=== PATIENT | female | born 2000 | race American Indian/Alaskan Native ===

== ENCOUNTER 2020-03-29 17:08 | Emergency (ER) | payer SELFPAY ==
[2020-03-29] MEDS ORDERED: IBUPROFEN 600 MG TAB PO ONE (17:19)
--- NOTE | 2020-03-29 18:15 | XRay Report ---
RIGHT HAND 3 VIEWS INDICATION: Traumatic injury. COMPARISON: No relevant prior imaging study available. FINDINGS: There is cortical offset at the base of the ring finger metacarpal on the AP image. This is not confi rmed on the additional projections. Bones otherwise unremarkable. No significant soft tissue swelling . No foreign bodies. There is widening at the scapholunate articulation. IMPRESSION: 1. Cortical offset at the base of the ring finger metacarpal only seen on one view. While this could be artifact, minimally displaced fracture could have this appearance, correlate with point tenderness . 2. Widening at the scapholunate articulation could be seen in the setting of age-indeterminate scapho lunate ligament injury. Signer Name: Matthieu Carr MD Signed: 03/29/2020 6:11 PM Workstation Name: [id number]
--- NOTE | 2020-03-29 18:25 | Emergency Department Report ---
ED Upper Extremity Inj HPI - General Chief Complaint: Extremity Injury, Upper Stated Complaint: RT HAND INJURY Source: patient Mode of arrival: Ambulatory Limitations: No Limitations - History of Present Illness Initial Comments: Patient is a 19-year-old -[place] female with no past medical history presents to the ED with complaint of acute onset severely painful lateral right hand and fifth metacarpal pain after she punched a door in anger about 2 hours ago. Patient states that the pain of the swollen of worsened in the last 1 hour. Patient states that she has not been able to perform any active range of motion of the right hand because of severe pain. Patient denies numbness and tingling or weakness of right hand, fall, nausea and vomiting, heavy lifting, n suhail pain, wrist pain, chest pain or shortness of breath. MD Complaint: Injury to:: right (hand), hand (pain) -: Sudden, hour(s) (2) Other Extremity Injury: Hand: Right (punched a wall) Other Injuries: none Handedness: right Place: home Severity scale (0 -10): 7 Improves With: none Worsens With: movement of extremity Context: direct blow (punched a door in anger), injury Associated Symptoms: denies other symptoms. denies: weakness, numbness, neck pain, suspects foreign body, nausea/vomiting, heard/felt popping sensat - Related Data Previous Rx's Medication Instructions Recorded Last Taken Type Acetaminophen/Codeine [Tylenol #3] 1 tab PO Q6H PRN #20 tab 06/09/15 Unknown Rx Amoxicillin/K Clav Tab [Augmentin 1 tab PO Q12HR #20 tab 06/09/15 Unknown Rx 875 mg] Loratadine (Nf) [Claritin] 10 mg PO DAILY #30 tablet 06/09/15 Unknown Rx Prednisone [predniSONE 5 mg (6-Day 5 mg PO .TAPER #1 tab.ds.pk 06/09/15 Unknown Rx Pack, 21 Tabs)] HYDROcodone/APAP 5-325 [[place] 1 each PO Q6HR PRN #12 tablet 03/29/20 Unknown Rx 5/325] Ibuprofen [Motrin] 600 mg PO Q8H PRN #30 tablet 03/29/20 Unknown Rx Allergies Allergy/AdvReac Type Severity Reaction Status Date / Time No Known Allergies Allergy Verified 06/08/15 20:05 ED Review of Systems ROS: Stated complaint: RT HAND INJURY Other details as noted in HPI Constitutional: denies: chills, fever Eyes: denies: eye pain, eye discharge, vision change ENT: denies: ear pain, throat pain Respiratory: denies: cough, shortness of breath, wheezing Cardiovascular: denies: chest pain, palpitations Endocrine: no symptoms reported Gastrointestinal: denies: abdominal pain, nausea, diarrhea Genitourinary: denies: urgency, dysuria, discharge Musculoskeletal: joint swelling (lateral right hand pain), arthralgia (Lateral right hand pain). denies: back pain Skin: denies: rash, lesions Neurological: denies: headache, weakness, paresthesias Psychiatric: denies: anxiety, depression Hematological/Lymphatic: denies: easy bleeding, easy bruising ED Past Medical Hx - Past Medical History Previous Medical History?: No - Surgical History Past Surgical History?: No - Social History Smoking Status: Never Smoker Substance Use Type: None - Medications Home Medications: Home Medications Medication Instructions Recorded Confirmed Last Taken Type Acetaminophen/Codeine [Tylenol #3] 1 tab PO Q6H PRN #20 tab 06/09/15 Unknown Rx Amoxicillin/K Clav Tab [Augmentin 1 tab PO Q12HR #20 tab 06/09/15 Unknown Rx 875 mg] Loratadine (Nf) [Claritin] 10 mg PO DAILY #30 tablet 06/09/15 Unknown Rx Prednisone [predniSONE 5 mg (6-Day 5 mg PO .TAPER #1 tab.ds.pk 06/09/15 Unknown Rx Pack, 21 Tabs)] HYDROcodone/APAP 5-325 [[place] 1 each PO Q6HR PRN #12 tablet 03/29/20 Unknown Rx 5/325] Ibuprofen [Motrin] 600 mg PO Q8H PRN #30 tablet 03/29/20 Unknown Rx ED Physical Exam - General Limitations: No Limitations General appearance: alert, in no apparent distress - Head Head exam: Present: atraumatic, normocephalic, normal inspection - Eye Eye exam: Present: normal appearance, PERRL, EOMI Pupils: Present: normal accommodation - ENT ENT exam: Present: normal exam, normal orophraynx, mucous membranes moist, TM's normal bilaterally, normal external ear exam - Neck Neck exam: Present: normal inspection, full ROM - Respiratory Respiratory exam: Present: normal lung sounds bilaterally. Absent: respiratory distress, wheezes, rales, rhonchi, chest wall tenderness, accessory muscle use, decreased breath sounds, prolonged expiratory - Cardiovascular Cardiovascular Exam: Present: regular rate, normal rhythm, normal heart sounds. Absent: systolic murmur, diastolic murmur, rubs, gallop - GI/Abdominal GI/Abdominal exam: Present: soft, normal bowel sounds. Absent: tenderness, guarding, rebound, hyperactive bowel sounds, hypoactive bowel sounds, organomegaly, mass - Extremities Exam Extremities exam: Present: normal inspection, tenderness (Palpable lateral right hand tenderness on fifth metacarpal), normal capillary refill, joint swelling (Mild right fifth metacarpal swelling tenderness). Absent: full ROM (Limited range of motion of right hand due to pain), pedal edema, calf tenderness - Back Exam Back exam: Present: normal inspection, full ROM. Absent: tenderness, CVA tenderness (R), CVA tenderness (L), muscle spasm, paraspinal tenderness, vertebral tenderness - Neurological Exam Neurological exam: Present: alert, oriented X3, CN II-XII intact, normal gait, reflexes normal - Psychiatric Psychiatric exam: Present: normal affect, normal mood - Skin Skin exam: Present: warm, dry, intact, normal color. Absent: rash ED Medical Decision Making - Radiology Data Radiology results: report reviewed, image reviewed Findings [facility] [address] [place] [address] XRay Report Signed Patient: PRISCILLA BASSETT#: [id number] : 2000 Acct:[id number] Age/Sex: 19 / F ADM Date: 03/29/20 Loc: ED Attending Dr: Ordering Physician: NIKA LUU Date of Service: 03/29/20 Procedure(s): XR hand 3+V RT Accession Number(s): [id number] cc: NIKA LUU Fluoro Time In Minutes: RIGHT HAND 3 VIEWS INDICATION: Traumatic injury. COMPARISON: No relevant prior imaging study available. FINDINGS: There is cortical offset at the base of the ring finger metacarpal on the AP image. This is not confirmed on the additional projections. Bones otherwise unremarkable. No significant soft tissue swelling. No foreign bodies. There is widening at the scapholunate articulation. IMPRESSION: 1. Cortical offset at the base of the ring finger metacarpal only seen on one view. While this could be artifact, minimally displaced fracture could have this appearance, correlate with point tenderness. 2. Widening at the scapholunate articulation could be seen in the setting of age-indeterminate scapholunate ligament injury. Signer Name: Matthieu Carr MD Signed: 03/29/2020 6:11 PM Workstation Name: [id number] Transcribed By: SW Dictated By: Matthieu Carr MD Electronically Authenticated By: Matthieu Carr MD Signed Date/Time: 03/29/201810 DD/ 08 TD/TT: - Medical Decision Making This is a 19-year-old -[place] female with no past medical history presents to the ED with complaint of acute onset severely painful lateral right hand and fifth metacarpal pain after she punched a door in anger about 2 hours ago. Patient states that the pain of the swollen of worsened in the last 1 hour. Patient states that she has not been able to perform any active range of motion of the right hand because of severe pain. In the ED, patient is alert and oriented x3 and is not in distress. Patient was treated for pain in the ED and right hand x-ray showed cortical offset at the base of the ring finger metacarpal only seen on one view. While this could be artifact, minimally displaced fracture could have this appearance, correlate with point tenderness. It also showed a widening at the scapholunate articulation could be seen in the setting of age-indeterminate scapholunate ligament injury. The patient's hand was splinted with ulnar gutter splint and the patient tolerated procedure well. Patient was therefore discharged home on pain medications and given a referral to the orthopedic surgeon on-call Dr. Myers for further evaluation. Patient was advised to contact Dr. Myers's office first thing in the morning on Monday, March 30, 2020 to schedule a follow-up appointment with Dr. Myers. Patient was advised to return to the ED immediately if symptoms get worse. - Differential Diagnosis Hand fracture; metacarpal fracture; fifth finger fracture, hand sprain Critical care attestation.: If time is entered above; I have spent that time in minutes in the direct care of this critically ill patient, excluding procedure time. ED Disposition Clinical Impression: Closed fracture of fourth metacarpal bone of right hand Qualifiers: Encounter type: initial encounter Metacarpal location: base Fracture alignment: displaced Qualified Code(s): S62.314A - Displaced fracture of base of fourth metacarpal bone, right hand, initial encounter for closed fracture Contusion of right hand including fingers Qualifiers: Encounter type: initial encounter Qualified Code(s): S60.221A - Contusion of right hand, initial encounter; S60.00XA - Contusion of unspecified finger without damage to nail, initial encounter Disposition: TO HOME OR SELFCARE Is pt being admited?: No Does the pt Need Aspirin: No Condition: Stable Instructions: Hand Contusion, [id number], Metacarpal Fracture, [id number], Finger Fracture, Adult Additional Instructions: The right hand x-ray showed mildly displaced fracture of right ring finger at the base. Therefore take medications with food, drink plenty of fluids and follow-up with the orthopedic surgeon on-call Dr. Myers for further evaluation. Contact Dr. Myers's office first thing in the morning on Monday, March 30, 2020 to schedule a follow-up appointment. Return to the ED immediately if symptoms get worse. Prescriptions: Ibuprofen [Motrin] 600 mg PO Q8H PRN #30 tablet PRN Reason: Pain HYDROcodone/APAP 5-325 [[place] 5/325] 1 each PO Q6HR PRN #12 tablet PRN Reason: Pain Referrals: MARCI MYERS MD [Staff Physician] - [place] (Contact Dr. Myers's office first thing in the morning on Monday, March 30, 2020 to schedule a follow- up appointment.) Time of Disposition: 18:36 Print Language: CITIZ[place] OF [place]
[2020-03-29 18:38] VITALS: BP 120/89
== END 2020-03-29 19:40 | disposition home or self-care (01) ==
LOC: ED 17:08
DX: S62.314A Displaced fracture of base of fourth metacarpal bone, right hand, initial encounter for closed fracture (principal); S60.221A Contusion of right hand, initial encounter; Z79.899 Other long term (current) drug therapy; W26.9XXA Contact with unspecified sharp object(s), initial encounter; Y93.89 Activity, other specified; Y92.009 Unspecified place in unspecified non-institutional (private) residence as the place of occurrence of the external cause; Y99.8 Other external cause status

== ENCOUNTER 2020-05-21 12:19 | Emergency (ER) | payer SELFPAY ==
[2020-05-21] MEDS ORDERED: ETOMIDATE 20 MG/10 ML INJ IV ONE ×2 (12:23→12:36)
[2020-05-21] MEDS ORDERED: levETIRAcetam 1000 MG/NS 0.75% 1,000 MG/100 ML BAG IV ONE ×2 (12:26→12:28)
[2020-05-21] MEDS ORDERED: ROCURONIUM 50 MG/5 ML INJ IV ONE ×2 (12:30→12:36)
[2020-05-21] MEDS ORDERED: MINERAL OIL/PETROLATUM, WHITE OPHTH OINT 3.5 GM OU PRN (12:37)
[2020-05-21] MEDS ORDERED: LIP THERAPY VASELINE TP PRN (12:37)
[2020-05-21] MEDS ORDERED: fentaNYL 100 MCG/2 ML INJ IV PRN (12:37)
[2020-05-21] MEDS ORDERED: fentaNYL DRIP Premix 2,000 MCG/100 ML BAG IV SCH (13:00)
[2020-05-21 13:34] LABS: Basophils # (Auto) 0.1 K/mm3 (0.0-0.1); Basophils % (Auto) 0.8 % (0.0-1.8); Eosinophils % (Auto) 0.1 % (0.0-4.3); Hemoglobin 13.5 gm/dl (10.1-14.3); Lymphocytes # (Auto) 2.4 K/mm3 (1.2-5.4); Lymphocytes % (Auto) 29.9 % (13.4-35.0); Mean Corpuscular HGB Conc 34 % (30-34); Mean Corpuscular Volume 95 fl (79-97); Monocytes # (Auto) 0.5 K/mm3 (0.0-0.8); Monocytes % (Auto) 6.6 % (0.0-7.3); Platelet Count 224 K/mm3 (140-440); Red Blood Count 4.22 M/mm3 (3.65-5.03); Red Cell Distribution Width 14.5 % (13.2-15.2)
--- NOTE | 2020-05-21 13:43 | History and Physical Report ---
Medications and Allergies Allergies Allergy/AdvReac Type Severity Reaction Status Date / Time No Known Allergies Allergy Verified 05/21/20 12:36 Home Medications Medication Instructions Recorded Confirmed Last Taken Type Acetaminophen/Codeine [Tylenol #3] 1 tab PO Q6H PRN #20 tab 06/09/15 Unknown Rx Amoxicillin/K Clav Tab [Augmentin 1 tab PO Q12HR #20 tab 06/09/15 Unknown Rx 875 mg] Loratadine (Nf) [Claritin] 10 mg PO DAILY #30 tablet 06/09/15 Unknown Rx Prednisone [predniSONE 5 mg (6-Day 5 mg PO .TAPER #1 tab.ds.pk 06/09/15 Unknown Rx Pack, 21 Tabs)] HYDROcodone/APAP 5-325 [[place] 1 each PO Q6HR PRN #12 tablet 03/29/20 Unknown Rx 5/325] Ibuprofen [Motrin] 600 mg PO Q8H PRN #30 tablet 03/29/20 Unknown Rx Active Meds: Active Medications Fentanyl (Fentanyl 100 Mcg/2 Ml Inj) 50 mcg IV Q10MIN PRN PRN Reason: ANALGESIA Hydrophilic Ointment (Lip Therapy Vaseline) 1 applic TP Q2HR PRN PRN Reason: Dry Lips Fentanyl Citrate (Fentanyl Drip Premix) 2,000 mcg in 100 mls @ 2.722 mls/hr IV TITR ZACARIAS; Protocol Propofol (Diprivan 10 Mg/Ml) 1,000 mg in 100 mls @ 1.633 mls/hr IV TITR ZACARIAS; Protocol Multi-Ingred Cream/Lotion/Oil/Oint (Mineral Oil/Petrolatum, White Ophth Oint 3.5 Gm) 1 applic OU Q4HR PRN PRN Reason: Dry Eye(s) Physical Examination - Vital Signs Vital Signs: Vital Signs Pulse BP Pulse Ox 120 H 154/104 100 05/21/20 12:53 05/21/20 12:53 05/21/20 12:53 Results - Laboratory Findings CBC and BMP: 05/21/20 13:14 Assessment and Plan [facility] Consult Note # Demographics Consult Type: Acute Stroke Level 1 (0-4.5 hrs) Patient Location: Emergency Room First Name: Carmelina Last Name: Edi Rajan Date of : 2000 Age: 19 Gender: Female Time of Initial Page (Eastern Time): 05/21/2020, 13:04 Time of Return Call (Eastern Time): 05/21/2020, 13:05 # HPI Chief Complaint: altered mental state, seizure History: 19 yo woman with unknown medical history presents with multiple seizures today. Received 2 mg ativan x 2 but had persistent right lower extremity focal seizures. She was loaded on Keppra 2000 mg keppra, was intubated for airway protection and started on Propofol. Last Known Normal:Unclear # Exam Additional Neurologic Exam: Patient intubated, sedated, paralyzed uable to perform teleneurology exam # Data Head CT: no bleed, preliminarily reviewed by me, please refer to radiology read for official reading # Assessment Impression: Recurrent seizures concering for status epilepticus, patient intub ated, sedated # Recommendations: Loaded with Keppra 2000 mg Currently sedated with Propofol Intubated CT/CTA pending (please call back if abnormal) Tox screen pending Electrolytes pending, correct any abnormalities Transfer to higher level of care for continuous EEG MRI brain Will consider LP pending further workup Disposition: transfer
[2020-05-21 13:44] LABS: Partial Thromboplastin Time 27.1 Sec. (24.2-36.6); Thrombin Time 15.9 Sec. (15.1-19.6)
--- NOTE | 2020-05-21 13:47 | Emergency Department Report ---
ED General Adult HPI - General Chief complaint: Seizure Stated complaint: SEIZURE PUI?: No Time Seen by Provider: 05/21/20 12:34 Source: EMS ( EMS documentation not available at time of chart dictation ), RN notes reviewed Mode of arrival: Stretcher Limitations: Altered Mental Status - History of Present Illness Initial comments: The patient was evaluated in the emergency department for symptoms described in the history of present illness. He/she was evaluated in the context of the global COVID-19 pandemic, which necessitated consideration that the patient might be at risk for infection with the virus that causes COVID-19. Institutional protocols and algorithms that pertain to the evaluation of patients at risk for COVID-19 are in a state of rapid change based on information released by regulatory bodies including the CDC and federal and state organizations. These policies and algorithms were followed during the jessica quevedo's care in the emergency department. Please note that these policies, procedures and recommendations changed on a rapid basis. EMS documentation not available at time of chart dictation This is a 19-year-old female. She is not known to myself previously The details of her past medical history at this time, including status, are not known to myself. She is brought to the hospital by EMS with a complaint of altered mental status and seizures. History obtained entirely from EMS, as the patient is currently altered. EMS reports they presented to this patient's domicile with a complaint of generalized seizure/convulsion. It is not known if this is the patient's first lifetime seizure, or if she has a history of seizures. EMS told me that the patient had a generalized convulsive event and/or seizure, which apparently spontaneously terminated. It is not known how long this event lasted for. There was no trauma today as per EMS, but they tell me that the patient may have had mild blunt head trauma a few days ago. They then told me that the patient appeared to be confused, then started to have another focal convulsive event, primarily in her right leg. There is also some right arm movement. They report normal Accu-Chek in the field. They report that patient has been having persistently altered mental status, and twitching in her right leg, on and off for at least the past 20 minutes. They gave the patient 2 mg of Ativan in the field, without improvement in symptoms. Initially upon arrival, Accu-Chek 96. Saturating at 96%. Having intermittent twitching in the right lower extremity, does not respond to noxious stimuli, pupils reactive to light, eyes moving in multiple directions. Patient nonverbal. We are concerned that the patient is in status epilepticus. She is therefore emergently intubated by myself. Patient medicated with Keppra. Code stroke called overhead. Noncontrast CT scan of the brain negative for acute disease. Discussed case with neurology on-call, Dr. Galindo. We agreed that the patient is not a TPA candidate given that she is in status epilepticus, and her last known well time at this time is not explicitly known. He did agree with supportive care, and transfer to tertiary care center for definitive management, as we are not able to provide continuous EEG monitoring. Laboratory studies, CT angiogram head and neck pending at this time. Patient is afebrile at this time. The patient was altered upon arrival, and therefore, not able to describe the qualitative nature of her symptoms, exacerbating factors, relieving factors, or aggravating factors pertinent to her presentation. We will try and get in touch with family to obtain additional history of present illness. -: This morning Quality: other Consistency: other Improves with: other Worsens with: other Associated Symptoms: other - Related Data Previous Rx's Medication Instructions Recorded Last Taken Type Acetaminophen/Codeine [Tylenol #3] 1 tab PO Q6H PRN #20 tab 06/09/15 Unknown Rx Amoxicillin/K Clav Tab [Augmentin 1 tab PO Q12HR #20 tab 06/09/15 Unknown Rx 875 mg] Loratadine (Nf) [Claritin] 10 mg PO DAILY #30 tablet 06/09/15 Unknown Rx Prednisone [predniSONE 5 mg (6-Day 5 mg PO .TAPER #1 tab.ds.pk 06/09/15 Unknown Rx Pack, 21 Tabs)] HYDROcodone/APAP 5-325 [[place] 1 each PO Q6HR PRN #12 tablet 03/29/20 Unknown Rx 5/325] Ibuprofen [Motrin] 600 mg PO Q8H PRN #30 tablet 03/29/20 Unknown Rx Allergies Allergy/AdvReac Type Severity Reaction Status Date / Time No Known Allergies Allergy Verified 05/21/20 12:36 ED Review of Systems ROS: Stated complaint: SEIZURE Other details as noted in HPI Comment: Unobtainable due to pts medical conditions ED Past Medical Hx - Past Medical History Additional medical history: UNKNOWN - Surgical History Additional Surgical History: UNKNOWN - Social History Smoking Status: Never Smoker Substance Use Type: None - Medications Home Medications: Home Medications Medication Instructions Recorded Confirmed Last Taken Type Acetaminophen/Codeine [Tylenol #3] 1 tab PO Q6H PRN #20 tab 06/09/15 Unknown Rx Amoxicillin/K Clav Tab [Augmentin 1 tab PO Q12HR #20 tab 06/09/15 Unknown Rx 875 mg] Loratadine (Nf) [Claritin] 10 mg PO DAILY #30 tablet 06/09/15 Unknown Rx Prednisone [predniSONE 5 mg (6-Day 5 mg PO .TAPER #1 tab.ds.pk 06/09/15 Unknown Rx Pack, 21 Tabs)] HYDROcodone/APAP 5-325 [[place] 1 each PO Q6HR PRN #12 tablet 03/29/20 Unknown Rx 5/325] Ibuprofen [Motrin] 600 mg PO Q8H PRN #30 tablet 03/29/20 Unknown Rx ED Physical Exam - General Limitations: Altered Mental Status, Other General appearance: obtunded - Head Head exam: Present: normocephalic, other (right forehead abrasion) - Eye Eye exam: Present: normal appearance, PERRL - ENT ENT exam: Present: normal exam, normal orophraynx, mucous membranes moist, normal external ear exam, other (Copious secretions noted in the oropharynx) - Neck Neck exam: Present: normal inspection, full ROM. Absent: tenderness, meningismus - Respiratory Respiratory exam: Absent: wheezes, rales, rhonchi, stridor - Cardiovascular Cardiovascular Exam: Present: normal rhythm, tachycardia, normal heart sounds. Absent: bradycardia, irregular rhythm, systolic murmur, diastolic murmur, rubs, gallop - GI/Abdominal GI/Abdominal exam: Present: soft. Absent: distended, tenderness, guarding, rebound, rigid, pulsatile mass - Extremities Exam Extremities exam: Present: normal inspection, normal capillary refill, other (2+ pulses noted in the bilateral upper and lower extremities. There is no palpable cord. negative Homans sign. Muscular compartments are soft. The p phillip is stable.). Absent: pedal edema, calf tenderness - Back Exam Back exam: Present: normal inspection. Absent: tenderness, CVA tenderness (R), CVA tenderness (L), paraspinal tenderness, vertebral tenderness - Neurological Exam Neurological exam: Present: altered, other (Patient nonverbal. Does not localize pain. Eyes do not open spontaneously. Eyes noted to be fluttering. Intermittent twitching in the right lower extremity.) - Skin Skin exam: Present: warm, dry, intact, normal color. Absent: rash ED Course Vital Signs 05/21/20 05/21/20 05/21/20 12:48 12:53 13:14 Temperature Pulse Rate 103 H 120 H 93 H Respiratory 19 Rate Blood Pressure 127/84 Blood Pressure 154/104 [Right] O2 Sat by Pulse 100 100 100 Oximetry 05/21/20 05/21/20 05/21/20 13:16 13:18 13:42 Temperature 97.9 F Pulse Rate 101 H 81 64 Respiratory 18 20 Rate Blood Pressure Blood Pressure 129/89 [Right] O2 Sat by Pulse 100 100 100 Oximetry 05/21/20 05/21/20 05/21/20 13:45 14:01 14:15 Temperature Pulse Rate 66 74 90 Respiratory 18 21 22 Rate Blood Pressure 137/72 135/82 135/91 Blood Pressure [Right] O2 Sat by Pulse 100 100 100 Oximetry 05/21/20 05/21/20 05/21/20 14:31 14:45 15:01 Temperature Pulse Rate 100 H 99 H 107 H Respiratory 24 21 28 H Rate Blood Pressure 127/79 113/67 103/62 Blood Pressure [Right] O2 Sat by Pulse 98 98 100 Oximetry 05/21/20 05/21/20 05/21/20 15:15 15:31 15:45 Temperature Pulse Rate 112 H 89 79 Respiratory 31 H 18 18 Rate Blood Pressure 107/63 96/45 85/40 Blood Pressure [Right] O2 Sat by Pulse 92 100 100 Oximetry 05/21/20 05/21/20 05/21/20 16:00 16:12 16:15 Temperature Pulse Rate 72 73 70 Respiratory 18 18 Rate Blood Pressure 86/45 86/45 83/44 Blood Pressure [Right] O2 Sat by Pulse 100 100 Oximetry 05/21/20 05/21/20 05/21/20 16:30 16:45 17:00 Temperature Pulse Rate 62 60 60 Respiratory 18 18 18 Rate Blood Pressure 93/52 95/51 100/58 Blood Pressure [Right] O2 Sat by Pulse 100 100 100 Oximetry 05/21/20 05/21/20 05/21/20 17:15 17:30 17:45 Temperature Pulse Rate 54 L 55 L 58 L Respiratory 18 18 18 Rate Blood Pressure 103/56 113/62 117/63 Blood Pressure [Right] O2 Sat by Pulse 100 100 100 Oximetry - Reevaluation(s) Reevaluation #1: 05/21/20 13:53 Differential diagnosis, including but not limited to: Seizure, pseudoseizure, status epilepticus, large vessel occlusion, dissection, electrolyte derangement, toxic encephalopathy, metabolic encephalopathy Assessment and plan: 19-year-old female, presenting with multiple convulsive events, without return of normal mental status, concerning for status epilepticus. She was intubated for airway protection. She is maximally resuscitated, and loaded with Keppra, started on propofol drip. Noncontrast CT scan of the brain negative for acute findings. CT angiogram head and neck pending. Hemodynamically stable at this time. Laboratory studies and EKG pending. We will reach out to local tertiary care center to arrange transfer. We will also discussed with family to attempt to obtain additional collateral information. 05/21/20 14:49 I contacted the patient's mother, Ms. Laura Daley, and obtain additional collateral information. Patient chronically consumes marijuana, but otherwise, has no chronic medical conditions, does not have an established diagnosis of seizures. No Covid related symptoms. The patient is not and has not delivered or given in the past 6 weeks as per her mother. No other recreational drug use that she is aware of. CT scan of the brain negative for acute fi ndings. CT angiogram head and neck negative for acute findings. Patient awake, moving 4 extremities purposefully. Nursing team to titrate propofol and fentanyl. Urinalysis demonstrates presence of marijuana. Patient does not have evidence of active convulsive activity at this time We will reach out to [facility] critical care/neurology critical care to discuss appropriate disposition. 05/21/20 15:23 I have discussed the case with Dr. Charles, neurology critical care at [facility]. We discussed the patient's history, physical, presentation, laboratory studies and pertinent imaging studies. He accepts the patient to his service at [facility]. Patient's mother is updated. This patient requires transfer as she has an emergent condition at this time which cannot be definitively managed at this hospital, as we do not have continuous EEG monitoring, or neurology critical care. We cannot exclude subc linical status epilepticus at this time. Patient hemodynamically stable, airway secured, medically suitable for transportation at this time, for definitive management. 05/21/20 16:00 No additional convulsive activity noted blood pressure in the 80s. This is likely secondary to propofol. We will taper down on propofol, give IV fluids, escalate fentanyl if needed. Nursing team given verbal and written order to check manual blood pressure. 05/21/20 18:31 Blood pressure improved at the time of discharge. Patient transported out of here, in no acute distress. - Intubation Time Out Performed: No (Emergency situation) Sedative: Etomidate Mg Given: 20 Paralytic: Rocuronium Mg Given: 100 Laryngoscope: fiberoptic video scope Assist Device Used: fiberoptic device ET Tube Size: 7.5 Tube Secured Depth (cm): 24 Tube Secured Location: teeth Tube Placement Confirmation: visualized tube passing t, equal breath sounds bilat, no breath sounds over epi, confirmation by capnometr Patient Tolerated Procedure: well Intubation Complications: difficult intubation ED Medical Decision Making - Lab Data Result diagrams: 05/21/20 13:14 05/21/20 13:14 Vital Signs 05/21/20 05/21/20 12:53 13:18 Temperature 97.9 F Pulse Rate 120 H 81 Blood Pressure 154/104 129/89 [Right] O2 Sat by Pulse 100 100 Oximetry Lab Results 05/21/20 05/21/20 Range/Units 13:14 13:14 WBC 8.1 (4.5-11.0) K/mm3 RBC 4.22 (3.65-5.03) M/mm3 Hgb 13.5 (10.1-14.3) gm/dl Hct 40.0 (30.3-42.9) % MCV 95 (79-97) fl MCH 32 (28-32) pg MCHC 34 (30-34) % RDW 14.5 (13.2-15.2) % Plt Count 224 (140-440) K/mm3 Lymph % (Auto) 29.9 (13.4-35.0) % Coal % (Auto) 6.6 (0.0-7.3) % Eos % (Auto) 0.1 (0.0-4.3) % Baso % (Auto) 0.8 (0.0-1.8) % Lymph # (Auto) 2.4 (1.2-5.4) K/mm3 Coal # (Auto) 0.5 (0.0-0.8) K/mm3 Eos # (Auto) 0.0 (0.0-0.4) K/mm3 Baso # (Auto) 0.1 (0.0-0.1) K/mm3 Seg Neutrophils % 62.6 (40.0-70.0) % Seg Neutrophils # 5.0 (1.8-7.7) K/mm3 PT 13.0 (12.2-14.9) Sec. INR 1.00 (0.87-1.13) APTT 27.1 (24.2-36.6) Sec. Thrombin Time 15.9 (15.1-19.6) Sec. Lab Results 05/21/20 05/21/20 05/21/20 Range/Units 13:14 13:14 13:14 WBC 8.1 (4.5-11.0) K/mm3 RBC 4.22 (3.65-5.03) M/mm3 Hgb 13.5 (10.1-14.3) gm/dl Hct 40.0 (30.3-42.9) % MCV 95 (79-97) fl MCH 32 (28-32) pg MCHC 34 (30-34) % RDW 14.5 (13.2-15.2) % Plt Count 224 (140-440) K/mm3 Lymph % (Auto) 29.9 (13.4-35.0) % Coal % (Auto) 6.6 (0.0-7.3) % Eos % (Auto) 0.1 (0.0-4.3) % Baso % (Auto) 0.8 (0.0-1.8) % Lymph # (Auto) 2.4 (1.2-5.4) K/mm3 Coal # (Auto) 0.5 (0.0-0.8) K/mm3 Eos # (Auto) 0.0 (0.0-0.4) K/mm3 Baso # (Auto) 0.1 (0.0-0.1) K/mm3 Seg Neutrophils % 62.6 (40.0-70.0) % Seg Neutrophils # 5.0 (1.8-7.7) K/mm3 PT 13.0 (12.2-14.9) Sec. INR 1.00 (0.87-1.13) APTT 27.1 (24.2-36.6) Sec. Thrombin Time 15.9 (15.1-19.6) Sec. Sodium 138 (137-145) mmol/L Chloride 106.2 (98-107) mmol/L Carbon Dioxide 18 L (22-30) mmol/L Anion Gap 17 mmol/L BUN 9 (7-17) mg/dL Glucose 100 (65-100) mg/dL Calcium 9.1 (8.4-10.2) mg/dL Total Bilirubin 1.10 (0.1-1.2) mg/dL AST 18 (5-40) units/L ALT 9 (7-56) units/L Alkaline Phosphatase 52 (35-129) units/L Total Protein 7.1 (6.3-8.2) g/dL Albumin 4.5 (3.9-5) g/dL Albumin/Globulin Ratio 1.7 % Plasma/Serum Alcohol (0-0.07) % 04/03/ Range/Units 13:14 WBC (4.5-11.0) K/mm3 RBC (3.65-5.03) M/mm3 Hgb (10.1-14.3) gm/dl Hct (30.3-42.9) % MCV (79-97) fl MCH (28-32) pg MCHC (30-34) % RDW (13.2-15.2) % Plt Count (140-440) K/mm3 Lymph % (Auto) (13.4-35.0) % Coal % (Auto) (0.0-7.3) % Eos % (Auto) (0.0-4.3) % Baso % (Auto) (0.0-1.8) % Lymph # (Auto) (1.2-5.4) K/mm3 Coal # (Auto) (0.0-0.8) K/mm3 Eos # (Auto) (0.0-0.4) K/mm3 Baso # (Auto) (0.0-0.1) K/mm3 Seg Neutrophils % (40.0-70.0) % Seg Neutrophils # (1.8-7.7) K/mm3 PT (12.2-14.9) Sec. INR (0.87-1.13) APTT (24.2-36.6) Sec. Thrombin Time (15.1-19.6) Sec. Sodium (137-145) mmol/L Chloride (98-107) mmol/L Carbon Dioxide (22-30) mmol/L Anion Gap mmol/L BUN (7-17) mg/dL Glucose (65-100) mg/dL Calcium (8.4-10.2) mg/dL Total Bilirubin (0.1-1.2) mg/dL AST (5-40) units/L ALT (7-56) units/L Alkaline Phosphatase (35-129) units/L Total Protein (6.3-8.2) g/dL Albumin (3.9-5) g/dL Albumin/Globulin Ratio % Plasma/Serum Alcohol < 0.01 (0-0.07) % - EKG Data -: EKG Interpreted by [facility] EKG shows normal: sinus rhythm Rate: normal - EKG Data When compared to previous EKG there are: previous EKG unavailable 05/21/20 13:58 EKG interpreted at 13: 58 Sinus rhythm, 67 bpm. Normal axis. QTC prolonged. Motion artifact. Not a STEMI. - Radiology Data Radiology results: pending, report reviewed Noncontrast CT scan of the brain is negative for acute finding CT HEAD WITHOUT CONTRAST INDICATION / CLINICAL INFORMATION: MAIN. Code stroke TECHNIQUE: All CT scans at this location are performed using CT dose reduction for ALARA by means of automated exposure control. COMPARISON: None available. FINDINGS: There is no acute intracranial hemorrhage. Ventricles are normal in size without midline shift or mass effect. No extra-axial fluid collection is seen. Visualized sella appears normal. Schaffer-white matter differentiation appears normal. ADDITIONAL FINDINGS: None. IMPRESSION: No acute findings. CODE STROKE: Time of Communication (FILER FINISH/CDT): 6672 Licensed Practitioner Receiving Report: Dr grider Signer Name: Guillermo Vance MD Signed: 05/21/2020 12:49 PM Workstation Name: [id number] . CT angio neck INDICATION / CLINICAL INFORMATION: 19 years Female; MAIN. Seizures TECHNIQUE: Thin cut axial images obtained through the head during IV bolus contrast administration. Sagittal, coronal, and 3 plane MIP reconstruc tions performed by the technologist. NASCET type criteria used evaluate stenoses. All CT scans at this location are performed using CT dose reduction for ALARA by means of automated exposure control. COMPARISON: None available. FINDINGS: ARCH: Near bovine arch configuration noted, which is normal variant. CAROTID ARTERIES: The visualized common and internal carotid arteries are widely patent. VERTEBRAL ARTERIES: Codominant vertebral system seen. No significant stenosis appreciated. ADDITIONAL FINDINGS: Patient is intubated. There are secretions in the mil and nasopharynx. IMPRESSION: No significant stenosis appreciated on this CTA of the neck. Signer Name: Sai Gomez MD, III Signed: 05/21/2020 1:25 PM Workstation Name: [id number] CT HEAD WITHOUT CONTRAST INDICATION / CLINICAL INFORMATION: MAIN. Code stroke TECHNIQUE: All CT scans at this location are performed using CT dose reduction for ALARA by means of automated exposure control. COMPARISON: None available. FINDINGS: There is no acute intracranial hemorrhage. Ventricles are normal in size without midline shift or mass effect. No extra-axial fluid collection is seen. Visualized sella appears normal. Schaffer-white matter differentiation appears normal. ADDITIONAL FINDINGS: None. IMPRESSION: No acute findings. CODE STROKE: Time of Communication (FILER FINISH/CDT): 5178 Licensed Practitioner Receiving Report: Dr grider Signer Name: Guillermo Vance MD Signed: 05/21/2020 12:49 PM Workstation Name: [id number] Critical Care Time: Yes Critical care time in (mins) excluding proc time.: 65 Critical care attestation.: If time is entered above; I have spent that time in minutes in the direct care of this critically ill patient, excluding procedure time. ED Disposition Clinical Impression: Status epilepticus, Marijuana abuse Disposition: DC/TX-02 [facility]M [facility] HOSP IP Is pt being admited?: No Does the pt Need Aspirin: No Condition: Critical Referrals: PRIMARY CARE, [Primary Care Provider] - 3-5 Days
--- NOTE | 2020-05-21 13:54 | Cat Scan Report ---
CT HEAD WITHOUT CONTRAST INDICATION / CLINICAL INFORMATION: MAIN. Code stroke TECHNIQUE: All CT scans at this location are performed using CT dose reduction for ALARA by means of automated e xposure control. COMPARISON: None available. FINDINGS: There is no acute intracranial hemorrhage. Ventricles are normal in size without midline shift or mas s effect. No extra-axial fluid collection is seen. Visualized sella appears normal. Schaffer-white matter differentiation appears normal. ADDITIONAL FINDINGS: None. IMPRESSION: No acute findings. CODE STROKE: Time of Communication (GUN SEALING MACHINE OPERATOR/CDT): 1248 Licensed Practitioner Receiving Report: Dr grider Signer Name: Guillermo Vance MD Signed: 05/21/2020 1:49 PM Workstation Name: [id number]
[2020-05-21 13:57] LABS: Alanine Aminotransferase 9 units/L (7-56); Albumin 4.5 g/dL (3.9-5); BUN/Creatinine Ratio 15; Blood Urea Nitrogen 9 mg/dL (7-17); Calcium 9.1 mg/dL (8.4-10.2); Hemolysis Index 26
[2020-05-21 13:58] LABS: Creatine Kinase MB 2.7 ng/mL (0.0-4.0)
[2020-05-21 14:13] LABS: Bilirubin,Urine NEG (Negative); Blood,Urine NEG (Negative); Color,Urine Yellow (Yellow); Mucus,Urine 1+ /HPF
[2020-05-21 14:15] LABS: Amphetamine Screen,Urine Negative; Benzodiazepines Screen,Urine Negative; Cocaine Screen,Urine Negative; Methadone Screen,Urine Negative; Opiate Screen,Urine Negative
--- NOTE | 2020-05-21 14:25 | Cat Scan Report ---
CT angio head INDICATION / CLINICAL INFORMATION: 19 years Female; MAIN. Seizures TECHNIQUE: Thin cut axial images obtained through the head during IV bolus contrast administration. S agittal, coronal, and 3 plane MIP reconstructions performed by the technologist. NASCET type criteria used evaluate stenoses. Automated exposure control utilized for radiation reduction purposes. Fair a mount of venous contamination is seen which somewhat limits this exam. COMPARISON: None available. FINDINGS: INTERNAL CAROTID ARTERIES: No significant narrowing appreciated. VERTEBROBASILAR SYSTEM: No significant narrowing appreciated. There may be a slight demonstration of the proximal basilar artery-no evidence of aneurysm seen. DISTAL BRANCHES: Distal branches of the anterior, middle, and posterior cerebral arteries are fairly symmetric in appearance and number. ANEURYSM: None identified. ADDITIONAL FINDINGS: Prominent soft tissue is seen in the roof the nasopharynx, presumably related to reactive adenoidal tissue. Please clinically correlate. IMPRESSION: No significant abnormality on this CTA of the head. No cause for seizures identified. Signer Name: Sai Gomez MD, III Signed: 05/21/2020 2:20 PM Workstation Name: [id number]
--- NOTE | 2020-05-21 14:30 | Cat Scan Report ---
. [address] angio neck INDICATION / CLINICAL INFORMATION: 19 years Female; MAIN. Seizures TECHNIQUE: Thin cut axial images obtained through the head during IV bolus contrast administration. S agittal, coronal, and 3 plane MIP reconstructions performed by the technologist. NASCET type criteria used evaluate stenoses. All CT scans at this location are performed using CT dose reduction for ALAR A by means of automated exposure control. COMPARISON: None available. FINDINGS: ARCH: Near bovine arch configuration noted, which is normal variant. CAROTID ARTERIES: The visualized common and internal carotid arteries are widely patent. VERTEBRAL ARTERIES: Codominant vertebral system seen. No significant stenosis appreciated. ADDITIONAL FINDINGS: Patient is intubated. There are secretions in the mil and nasopharynx. IMPRESSION: No significant stenosis appreciated on this CTA of the neck. Signer Name: Sai Gomez MD, III Signed: 05/21/2020 2:25 PM Workstation Name: [id number]
[2020-05-21 14:31] LABS: Cannabinoid Screen,Urine Positive
[2020-05-21 14:53] LABS: ABG Base Excess -6.9 mmol/L (-2.0-3.0); ABG HCO3 19.1 mmol/L (20.0-26.0); ABG Methemoglobin 0.6 % (0.0-1.5); ABG Oxygen Saturation 98.6 % (95.0-99.0); ABG PCO2 40.2 mm Hg; ABG PH 7.294 pH Units (7.350-7.450); ABG PO2 143.6 mm Hg (80.0-90.0)
[2020-05-21] MEDS ORDERED: LACTATED RINGERS 2,000 ML IV ONE (15:59)
[2020-05-21 18:13] VITALS: BP 117/63
== END 2020-05-21 18:14 | disposition short-term general hospital (02) ==
LOC: ED 12:19
DX: G40.901 Epilepsy, unspecified, not intractable, with status epilepticus (principal); F12.10 Cannabis abuse, uncomplicated; Z79.899 Other long term (current) drug therapy
CPT/HCPCS: 31500; 31720; 36415; 70450; 70496; 70498; 71045; 80053; 80307; 81001; 82550; 82553; 82803; 83735; 84484; 84702; 85025; 85610; 85670; 85730; 87205; 96365; 96367; 96368; 96375; 96376; 99285; J1953; J2704; J3010; J7120; Q9967; 80320; 94002; G0480

== ENCOUNTER 2021-09-08 21:02 | Emergency (ER) | payer SELFPAY ==
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
[2021-09-08 22:37] LABS: Basophils # (Auto) 0.1 K/mm3 (0.0-0.1); Eosinophils # (Auto) 0.1 K/mm3 (0.0-0.4); Eosinophils % (Auto) 1.1 % (0.0-4.3); Hematocrit 41.3 % (30.3-42.9); Lymphocytes # (Auto) 2.3 K/mm3 (1.2-5.4); Mean Corpuscular HGB Conc 34 % (30-34); Mean Corpuscular Volume 98 fl (79-97); Monocytes # (Auto) 0.5 K/mm3 (0.0-0.8); Monocytes % (Auto) 7.3 % (0.0-7.3); Platelet Count 217 K/mm3 (140-440); Red Blood Count 4.21 M/mm3 (3.65-5.03)
[2021-09-08] MEDS ORDERED: SODIUM CHLORIDE 0.9% 1000 ML 1,000 ML IV ONE (22:49)
[2021-09-08 22:52] LABS: Blood Urea Nitrogen 10 mg/dL (7-17); Calcium 9.7 mg/dL (8.4-10.2); Hemolysis Index 13
[2021-09-08 22:57] LABS: BUN/Creatinine Ratio 14
[2021-09-08 23:15] LABS: Amphetamine Screen,Urine PRESUMPTIVE NEGATIVE; Benzodiazepines Screen,Urine PRESUMPTIVE NEGATIVE; Cannabinoid Screen,Urine PRESUMPTIVE POSITIVE; Cocaine Screen,Urine PRESUMPTIVE NEGATIVE; Methadone Screen,Urine PRESUMPTIVE NEGATIVE; Opiate Screen,Urine PRESUMPTIVE NEGATIVE
[2021-09-08 23:23] LABS: Bilirubin,Urine Negative (Negative); Blood,Urine Negative (Negative); Color,Urine Yellow (Yellow); Urobilinogen,Urine < 2.0 mg/dL (<2.0)
[2021-09-09 02:34] LABS: Alanine Aminotransferase 11 units/L (7-56)
--- NOTE | 2021-09-09 12:10 | Event Note ---
Date: 09/09/21 S: No events reported overnight O: Vital Signs - 8 hr 09/09/21 09/09/21 09/09/21 05:49 05:51 08:30 Pulse Rate 57 L Pulse Rate [ Lying] Respiratory 15 Rate Blood Pressure 95/63 Blood Pressure 104/63 [Left] Blood Pressure [Lying] O2 Sat by Pulse 99 99 100 Oximetry 09/09/21 09/09/21 09/09/21 08:46 09:00 09:16 Pulse Rate Pulse Rate [ Lying] Respiratory Rate Blood Pressure 108/66 106/64 88/58 Blood Pressure [Left] Blood Pressure [Lying] O2 Sat by Pulse 100 100 100 Oximetry 09/09/21 09/09/21 09/09/21 09:31 09:45 10:01 Pulse Rate Pulse Rate [ Lying] Respiratory Rate Blood Pressure 90/50 100/64 96/60 Blood Pressure [Left] Blood Pressure [Lying] O2 Sat by Pulse 99 100 100 Oximetry 09/09/21 09/09/21 09/09/21 10:15 10:31 10:45 Pulse Rate Pulse Rate [ Lying] Respiratory Rate Blood Pressure 96/60 96/60 96/60 Blood Pressure [Left] Blood Pressure [Lying] O2 Sat by Pulse 99 100 100 Oximetry 09/09/21 09/09/21 09/09/21 11:01 11:15 11:54 Pulse Rate Pulse Rate [ 70 Lying] Respiratory Rate Blood Pressure 96/60 96/60 Blood Pressure [Left] Blood Pressure 111/60 [Lying] O2 Sat by Pulse 100 100 Oximetry A: Suicidal ideation/suicide attempt P: Awaiting psych eval
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
[2021-09-09 18:58] VITALS: BP 123/83
--- NOTE | 2021-09-11 09:58 | Electrocardiograph Report ---
[facility] Test Date: 2021-09-08 Test Time: 22:50:43 Pat Name: PRISCILLA WOODARD Department: Room: Gender: F Men'S Swim Coach: ER : 2000 Requested By: JOSE MONSON Order Number: [id number] Reading MD: Ceaasr Martini Measurements Intervals [place] Rate: 50 P: 34 RI: 181 QRS: 65 QRSD: 72 T: 49 QT: 420 QTc: 382 Interpretive Statements Sinus bradycardia ST elev, probable normal early repol pattern Compared to ECG 05/21/2020 14:03:56 ST (T wave) deviation now present Sinus rhythm no longer present Electronically Signed On 09-11-2021 9:57:38 EDT by Ceasar Martini
--- NOTE | 2021-09-11 09:59 | Electrocardiograph Report ---
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
== END 2021-09-09 19:01 | disposition home or self-care (01) ==
LOC: ED 21:02
DX: R45.851 Suicidal ideations (principal); Z98.890 Other specified postprocedural states; Z79.899 Other long term (current) drug therapy
CPT/HCPCS: 36415; 80048; 80307; 81001; 84450; 84460; 84703; 85025; 93005; 96360; 99285; J7030; 80320; G0480

== ENCOUNTER 2021-09-24 21:08 | Emergency (ER) | payer SELFPAY ==
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
[2021-09-25] MEDS ORDERED: diazePAM 5 MG TAB PO ONE (02:16)
[2021-09-25] MEDS ORDERED: IBUPROFEN 600 MG TAB PO ONE (02:16)
[2021-09-25] MEDS ORDERED: ONDANSETRON 4 MG ODT TAB PO ONE ×2 (02:16→06:20)
[2021-09-25] MEDS ORDERED: traMADol 50 MG TAB PO ONE (02:17)
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
[2021-09-25] MEDS ORDERED: HYDROcodone/ACETAMINOPHEN 5-325 MG TAB PO ONE (06:20)
[2021-09-25 07:08] VITALS: BP 133/83
== END 2021-09-25 07:08 | disposition home or self-care (01) ==
LOC: ED 21:08
DX: S60.00XA Contusion of unspecified finger without damage to nail, initial encounter (principal); S63.90XA Sprain of unspecified part of unspecified wrist and hand, initial encounter; S60.419A Abrasion of unspecified finger, initial encounter; W25.XXXA Contact with sharp glass, initial encounter; Y93.89 Activity, other specified; Y92.89 Other specified places as the place of occurrence of the external cause; Y99.8 Other external cause status
CPT/HCPCS: 70450; 99284; J3490; Q0162